=== PATIENT | male | born 1950 | race Caucasian/White ===

== ENCOUNTER → 2019-05-22 | Outpatient (CLI) | payer MEDICARE, BC ==
[~2019-05-22] MED LIST: APIX5TAB PO; LISI-170 PO; LORA10TA37 PO; LORA10TA62 PO; NAPR-856 PO; SOTA120T7 PO
== END | disposition home or self-care (01) ==
LOC: CVU 09:54
PROVIDERS: ATTEND Nurse Practitioner Family
DX: I08.3 Combined rheumatic disorders of mitral, aortic and tricuspid valves (principal); I11.9 Hypertensive heart disease without heart failure; I48.0 Paroxysmal atrial fibrillation
CPT/HCPCS: 93306